=== PATIENT | male | born 1980 | race Caucasian/White ===

== ENCOUNTER → 2017-11-23 | Outpatient (CLI) | payer OTHER ==
[~2017-11-23] VITALS: Ht 190.5 cm; Wt 104.3 kg
[~2017-11-23] MED LIST: BACLOFEN20 MG PO; CELEXA40 MG PO; DITROPAN XL10 M1 PO; LIORESAL I IT; LIORESAL I500 MCG/ML INTRATHECA; MINOCYCLINE HC100 M2 PO; NORTRIPTYLINE H25 M3 PO; PERCOCET 5-3251 EACH PO; PRISTIQ50 MG PO; VITAMIN B-12500 MCG PO; VITAMIN D1000 UNI1 PO; VITAMINC500 PO
--- NOTE | ~2017-11-23 | HPC ---
[facility] [address] [address] PAIN MANAGEMENT CONSULTATION Name: KEVIN HERNANDEZ Room #: REG [facility] Seu#: [id number] Admission: 11/23/17 Attend Phys: Donavan Barnett MD Discharge: Date of : 84 Report #: [id number] THIS REPORT FOR: //name// CC: Donavan Treviño DATE OF SERVICE: 11/23/2017 DATE OF REGISTRATION: 11/23/2017 REASON FOR VISIT: Transition to my service for management of his intrathecal pump. Because of insurance reasons, the patient is returning to my service so that I can manage his intrathecal pump. It was previously managed by Traciehermelinda Canas advanced nurse practitioner with Dr. Haroon Cunha. She has done him a very good job. REASON FOR TRANSFER: Insurance. His works for [employer] and will be better covered coming to a [facility], [facility]. 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 Intrathecal pump has done a reasonable job of controlling his spasticity. Mrs. Canas has him currently at 137 mcg under a complex program with Flex increasing his dose for 12 hours from 4:00 p.m. through 4:00 a.m. in the morning. We have elected today to resume those intervals; however, we are going to increase the dose overall, primarily at nighttime. We will somewhat increase his daytime dose as well. PHYSICAL EXAMINATION: He is a pleasant gentleman. He is chewing tobacco. BMI is 28.7. He is paraplegic and in a wheelchair. His blood pressure is 111/70, heart rate 92, respirations 16. Pain intensity 4. He is not fallen in the last 3 months. IMPRESSION: 1. Spasticity related to spinal cord injury. 2. Management of intrathecal infusion pump. PROCEDURE: Refill and reprogram intrathecal pump. It took some time for us today to locate the medication which was in our pharmacy. We have just 20 mL of baclofen at 500 mcg/mL. We will try to resume as 1000 mcg/mL dosing at followup visit and we will refill the pump to a total [facility] [address] [place] [address] PAIN MANAGEMENT CONSULTATION Name: KEVIN HERNANDEZ Room #: REG [facility] Sue#: [id number] Admission: 11/23/17 Attend Phys: Donavan Barnett MD Discharge: Date of : 84 Report #: [id number] of 40 mL. The skin was prepped with ChloraPrep. The skin was anesthetized at 22-gauge non-coring needle advanced into the intrathecal pump. Old medication removed and discarded. We expected 1.2 with a reservoir volume by program, but retrieved roughly 5 mL. The alarm had triggered. He had not yet moved into low reservoir alarm programming. I then refilled the pump with 20 mL of baclofen 500 mcg/mL performed a bridge bolus, which will take 92 hours at a dose of 167 mcg per day. This is the increase to his dose that will be present at the conclusion of the programming. He will be receiving by Flex program 9.5 mcg per hour as a basal rate followed by a dose of 4.5 mcg per hour at the conclusion of the programming. I plan to see him back in the pain clinic before 01/17/2018. <ELECTRONICALLY SIGNED> By: Donavan Barnett MD 12/19/17 1408 1650 00 Donavan Barnett MD /nt
[2017-11-23 13:34] VITALS: BP 111/70
== END | disposition home or self-care (01) ==
LOC: PAIN 07:10
DX: Z45.1 Encounter for adjustment and management of infusion pump (principal); G80.1 Spastic diplegic cerebral palsy

== ENCOUNTER → 2018-01-16 | Outpatient (CLI) | payer OTHER ==
[~2018-01-16] VITALS: Ht 190.5 cm; Wt 99.8 kg
--- NOTE | ~2018-01-16 | HPC ---
[facility] [address] [address] PAIN MANAGEMENT CONSULTATION Name: KEVIN HERNANDEZ Room #: REG [facility] Sue#: [id number] Admission: 01/16/18 Attend Phys: Donavan Barnett MD Discharge: Date of : 84 Report #: [id number] THIS REPORT FOR: //name// CC: Donavan Treviño DATE OF SERVICE: 01/16/2018 REASON FOR VISIT: Followup visit for refill and reprogramming of intrathecal infusion pump. HISTORY OF PRESENT ILLNESS: The patient returns to the pain clinic today for refill of his pump. We have last filled it on 11/23/2017. We programmed in a bridge bolus along with a flex program. He had a couple of days where his spasticity was really quite bad. I am little concerned about reprogramming the pump today with a bridge bolus as we are converting back to the 1000 mcg/mL concentration. Today, he reports that he is doing well. He is involved in his Children's activities since playing baseball. He is able to get on a riding mower and control it with his arms, so he has been doing a lot of mowing despite his spinal cord injury, incomplete at C7. Seems to be trying very hard to lead an active life. Today, he scores his pain intensity as a 4, his spasticity is well controlled, is generally worse at night. He does like to have the baclofen dose down during the day, so he can use the spasticity to help stand and bear weight. He is using a wheelchair today in the office. PHYSICAL EXAMINATION: VITAL SIGNS: Blood pressure 117/79, heart rate is 85, respirations 16 and BMI is 27. GENERAL: He appears fit. MUSCULOSKELETAL: He has minimal spasticity today noted in the lower extremities. IMPRESSION: 1. Spasticity related to incomplete C7 spinal cord injury. 2. Management of baclofen intrathecal infusion pump. PROCEDURE: Refill reprogramming. Skin was prepped with ChloraPrep. Skin anesthetized and a 22-gauge non-coring needle advanced in the pump. Old medication removed and discarded. Pump was refilled with baclofen 1000 mcg/mL and a reprogramming session was performed. I did not resume the flex program. Instead, I have placed him on the same daily dose 170 mcg with a plan to be in touch by phone in 48 hours if he needs to have an adjustment. I can do this [address] [address] PAIN MANAGEMENT CONSULTATION Name: DAVID J Room #: REG [facility] Rogers#: [id number] Admission: 01/16/18 Attend Phys: Donavan Barnett MD Discharge: Date of : 84 Report #: [id number] easily with the operating systems programmer and we will meet him to do that when he comes back to [place] to [place] for his son's baseball game. He will contact me if he needs that adjustment. Notified him that his CATHLEEN is 28 months. He will need to have the pump replaced within the next couple of years. Followup visit planned by phone. By: 1712 2330 Donavan Barnett MD /nt
[2018-01-16 13:53] VITALS: BP 117/79
== END | disposition home or self-care (01) ==
LOC: PAIN 06:55
DX: Z45.1 Encounter for adjustment and management of infusion pump (principal)

== ENCOUNTER → 2018-08-21 | Outpatient (CLI) | payer OTHER ==
[~2018-08-21] VITALS: Ht 190.5 cm; Wt 97.5 kg
--- NOTE | ~2018-08-21 | HPC ---
[facility] [address] [address] PAIN MANAGEMENT CONSULTATION Name: KEVIN HERNANDEZ Room #: REG [facility]#: [id number] Admission: 08/21/18 Attend Phys: Donavan Barnett MD Discharge: Date of : 84 Report #: [id number] THIS REPORT FOR: //name// CC: Donavan Treviño MD DATE OF SERVICE: 08/21/2018 Followup visit for refill of intrathecal infusion pump for spasticity related to spinal cord injury. The patient is in clinic today in a wheelchair for refill of his intrathecal pump. He is doing well with no need for adjustment. He has a complex infusion providing a flex 137 mcg a day. He receives a bit more in the morning and evening at bedtime. He is doing well. His current dosing does not warrant an adjustment. Last refill was performed 6 months ago. PHYSICAL EXAMINATION: GENERAL: He is pleasant, alert and oriented, he is in a wheelchair. He does not appear overly anxious or depressed. VITAL SIGNS: Blood pressure is 117/79, heart rate is 85, respirations 16. BMI noted to be 27.5. EXTREMITIES: He has no significant spasticity noted at rest. IMPRESSION: 1. Spasticity related to spinal cord injury. 2. Management of intrathecal infusion pump providing baclofen 137 mcg per day under a flex program. PROCEDURE: Pump refill and reprogramming session. Skin was prepped with ChloraPrep and anesthetized. A 22-gauge non-coring needle advanced in the pump. Old medication removed and discarded. Pump refilled with baclofen 1000 mcg per mL and a reprogramming session was performed. Old medication was discharged per protocol. The reprogramming session was checked by myself and the nurse, initialed and the patient was given a copy. I plan to see him back in the pain clinic in 6 months. No oral medications are ordered. By: 1307 1841 Donavan Barnett MD /nt
[2018-08-21 09:28] VITALS: BP 121/78
== END | disposition home or self-care (01) ==
LOC: PAIN 00:34
DX: Z45.1 Encounter for adjustment and management of infusion pump (principal); G89.29 Other chronic pain; G80.1 Spastic diplegic cerebral palsy

== ENCOUNTER 2019-02-06 07:05 | Day surgery (SDC) | payer OTHER ==
[~2019-02-06] VITALS: Ht 190.5 cm; Wt 99.8 kg
--- NOTE | ~2019-02-06 | O ---
[facility] [place] [address] [place] [address] OPERATIVE REPORT Name: KEVIN HERNANDEZ Room #: DEP [facility] Nehemiah.#: [id number] Admission: 02/06/19 ������������������ Attend Phys: Amado Berg MD Discharge: 02/06/19 ������������������ Date of : 84 Report #: [id number] THIS REPORT FOR: //name// CC: Amado Berg José Luis Treviño PREOPERATIVE DIAGNOSIS: Multiple pigmented lesions on his face. POSTOPERATIVE DIAGNOSIS: Multiple pigmented lesions on his face. PROCEDURE: 1. Excision of lesion, left preauricular skin. 2. Excision of lesion, left chin. 3. Excision of lesion, right cheek. SURGEON: Amado Berg MD. ANESTHESIA: Monitored anesthesia care. ESTIMATED BLOOD LOSS: None. DRAINS: None. COMPLICATIONS: None. COUNTS: Needle, sponge, instrument counts correct. INDICATIONS FOR PROCEDURE: The patient is a 38-year-old white male who presents with pigmented lesions on his face, which is chronically irritating with shaving. He presents now for excision, understanding the risks and complications including bleeding, infection, scarring, possible need for further surgery. OPERATIVE FINDINGS: Left preauricular lesion 0.75 cm was excised, 3.5 cm repaired wound length. Lesion left chin 1 cm excised and 4 cm repaired wound length. Lesion right cheek 1.2 cm excised and 4.2 cm repaired wound length. DESCRIPTION OF PROCEDURE: The patient was taken to the operating room. Under sedation, each area was outlined for elliptical excision, paralleling skin lines, infiltrated with local, prepped and draped. Each lesion was serial excised. Wound edges were undermined, taking care to avoid injury to the hair follicles and at this point, hemostasis using cautery. The deep tissue was closed with 5-0 PDS suture and then skin with interrupted and running 5-0 nylon running sutures. Neosporin and sterile dressings applied. The patient tolerated the procedure well and was taken to the recovery room in stable condition to be discharged when fully alert with prescriptions for pain, nausea and antibiotics. Written and verbal instruction on care and followup and to see [address] [address] OPERATIVE REPORT Name: KEVIN HERNANDEZ Room #: DEP [facility] M.R.#: [id number] Admission: 02/06/19 ������������������ Attend Phys: Amado Berg MD Discharge: 02/06/19 ������������������ Date of : 84 Report #: [id number] hi in the office as instructed. He is to call in the meantime for any problems at all. ��������������������������������������������� ���������������������������������������� By: ��������������������������������������������� 1416 1436 Amado Berg MD /nt
[~2019-02-06 07:05] MED LIST changes: +ADVIL PM CAPLE1 EACH PO; +DESVENLAFAXINE100 M3 PO; +LIORESAL 10 MG10 MG PO
[2019-02-06 13:31] VITALS: BP 123/83
--- NOTE | 2019-02-09 13:08 | PATH ---
[facility] [address] [address] PATHOLOGY RPT PROCEDURE Name: KEVIN MCPHERSON Room #: DEP [facility]..#: [id number] ������������������ Admission: 02/06/19 ������������������ Date of : 84 Discharge: 02/06/19 Report #: [id number] Path Case #: [id number] [facility] Accession Number: [id number] . 01 Material submitted: . PART A: chin - LESION LEFT CHIN TAG AT 12:00. Modifiers: left, 12:00 PART B: cheek - LESION LEFT CHEEK TAG AT 12:00. Modifiers: left, 12:00 PART C: cheek - LESION RIGHT CHEEK TAG AT 12:00. Modifiers: right, 12:00 . 01 Clinical history: . Lesions x3 face . 02 Diagnosis: A. Skin, left chin lesion, excision: - Compound nevus. - Negative for malignancy. - Margins free. . B. Skin, left cheek lesion, excision: - Compound nevus. - Negative for malignancy. - Margins free. . C. Skin, right cheek lesion, excision: - Intradermal nevus, traumatized and ulcerated. - Negative for malignnacy. - Margins free. (IUV:octavio; 02/08/2019) QMS/02/09/2019 . 02 Comment: This case was reviewed by Dr. Maddison Stringer (board-certified dermatopathologist), who concurs with my diagnosis. (IUV:octavio; 02/08/2019) . 02 Electronically signed: . Evelyn Pink MD, Pathologist NPI- [id number] . 01 Gross description: . A. The specimen is received in formalin, labeled "Kevin Mcpherson, #1 lesion left chin, tag at 12:00". Received is an oriented ellipse of skin measuring 2.7 x 0.9 x 0.7 cm in greatest dimensions with a suture placed near one tip designating this as the 12:00 margin. The surgical margins are inked as follows: 12 to 3:00-yellow, 3 to 6:00-blue, and 6 to 12:00-black. The epidermal surface displays a lesion which is poorly circumscribed, irregular in contour and light espana measuring 0.6 x 0.5. [address] [address] PATHOLOGY RPT PROCEDURE Name: KEVIN MCPHERSON Room #: DEP [facility] Sue#: [id number] ������������������ Admission: 02/06/19 ������������������ Date of : 84 Discharge: 02/06/19 Report #: [id number] Path Case #: [id number] The specimen is sectioned into eight pieces and entirely submitted in cassettes A1 through A3, with the 12 and 6:00 aspects placed in cassette A3. . B. The specimen is received in formalin, labeled "Kevin Mcpherson, #2 lesion left cheek, tag at 12:00". Received is an oriented ellipse of skin measuring 2.5 x 0.7 x 0.5 cm in greatest dimensions with a suture placed at one tip designating this as the 12:00 margin. The surgical margins are inked as follows: 12 to 3:00-yellow, 3 to 6:00-blue, and 6 to 12:00-black. The epidermal surface displays a lesion which is poorly circumscribed, irregular in contour and light espana measuring 0.5 x 0.4 cm. The specimen is sectioned into eight pieces and entirely submitted in cassettes B1 and B2, with the 12 and 6:00 aspects placed in cassette B2. . C. The specimen is received in formalin, labeled "Kevin Mcpherson, #3 lesion right cheek, tag at 12:00". Received is an oriented ellipse of skin measuring 2.7 x 1.0 x 0.8 cm in greatest dimensions with a suture placed near one tip designating this as the 12:00 margin. The surgical margins are inked as follows: 12 to 3:00-yellow, 3 to 6:00-blue, and 6 to 12:00-black. The epidermal surface displays a lesion which is well-circumscribed, raised and light espana measuring 0.7 x 0.5 x 0.2 cm. The specimen is sectioned into nine pieces and entirely submitted in cassettes C1 through C3, with the 12 and 6:00 aspects placed in cassette C3. (CAA; 02/07/2019) QAC/QAC . 02 Pathologist provided ICD-10: D22.39 . 02 CPT . 747813, [id number], [id number] Specimen Comment: A courtesy copy of this report has been sent to Specimen Comment: [phone], . Specimen Comment: Report sent to / DR BAEZ Performed at: [address] [facility], [place], [place] [id number] MD Ke Ramirez MD Phone: [phone] Performed at: [address] [id number] MD Evelyn Pink MD Phone: [phone]
== END 2019-02-06 17:25 | disposition home or self-care (01) ==
LOC: TBA 07:05 → OR 07:05
DX: D22.39 Melanocytic nevi of other parts of face (principal); F32.9 Major depressive disorder, single episode, unspecified; F41.9 Anxiety disorder, unspecified; Z90.49 Acquired absence of other specified parts of digestive tract; Z98.890 Other specified postprocedural states; Z87.820 Personal history of traumatic brain injury
CPT/HCPCS: 50010; 50101; 50386; 50398; 56524; 56526; 56528; 56805; 62110; 62850; 70005